=== PATIENT | female | born 1970 | race Caucasian/White ===

== ENCOUNTER 2017-02-01 15:14 | Emergency (ER) | payer OTHER ==
[2017-02-01] MEDS ORDERED: DUONEB 0.5-3 MG/3 ml Neb IH ONE ×2 (16:16→16:48)
--- NOTE | 2017-02-01 16:23 | ERPHSYRPT ---
- History of Present Illness Time Seen by Provider: 02/01/17 16:17 Source: patient Exam Limitations: no limitations Patient Subjective Stated Complaint: Pt states she has had a cough and been sob and wheezing for the last [address] Ortez called in a z-pack and harvinder worthy that she started yesterday but is not getting any better. States her ribs hurt from coughing so much. Triage Nursing Assessment: Pt alert and oriented x3. skin pink warm and dry. afebrile. expiratory wheezes noted ant/post. no sob noted Physician History: Is a 46-year-old white female with history of CVA, high blood pressure, asthma, pulmonary embolism, GERD, ulcers, anxiety, depression She arrives with complaint of cough for 3 days she states she has coughed she is having pain in her right lateral ribs with coughing symptoms for re-days she denies any fevers states she cannot cough anything up she does feel short of breath. Past medical history includes CVA, high blood pressure, asthma, pulmonary embolism, GERD, ulcers, anxiety, depression, ovarian cyst Past surgical history includes cholecystectomy, , tubal ligation, ovary removed Social history is positive for tobacco use Patient is on Laurens 10/ 25 mL of filled this prescription on January 04, 2017 for 120 tablets she is also on Lyrica 75 mg she filled this for of 90 tablets on January 04, 2017 Patient states she received Tessalon pearls and Zithromax from her family doctor several days ago. Timing/Duration: day(s) (3 days) Severity of Dyspnea-Max: mild Severity of Dyspnea-Current: mild Modifying Factors: Improves With: nothing Associated Symptoms: cough, chest pain/discomfort (pain with breathing right lateral rib), wheezing, No edema, No fever, No insomnia, No loss of appetite, No lightheadedness, No weakness, No ankle swelling, No chills, No hemoptysis, No calf pain, No dizziness, No heaviness, No heart racing, No lightheadedness, No leg swelling, No muscle spasms feet, No muscle spasms hands, No painful breathing, No productive cough, No sweating, No tightness, No tingling face, No tingling hands Allergies/Adverse Reactions: Penicillins Allergy (Verified 02/01/17 15:30) tramadol HCl [From [facility]] Allergy (Verified 02/01/17 15:30) Home Medications: Esomeprazole Magnesium [Nexium] 20 mg PO DAILY 01/19/16 [History] Hydrocodone Bit/Acetaminophen [Laurens 10-325 Tablet] 1 tab PO Q4-6HPRN PRN [History] Lisinopril 20 mg PO DAILY 01/19/16 [History] Sertraline HCl 100 mg [Zoloft 100 MG] 200 mg PO DAILY 01/19/16 [History] Pregabalin 50 mg [Lyrica 50MG] 50 mg PO TID 04/19/16 [History] Brexpiprazole [Rexulti] 2 mg PO DAILY 06/12/16 [History] Hydroxyzine HCl 25 mg [Atarax 25 mg] 25 mg PO TIDPRN PRN 06/12/16 [History ] Trazodone HCl [Oleptro ER] 1 tab PO HS 06/12/16 [History] Furosemide 20 mg [Lasix 20 mg] 20 mg PO DAILY 08/24/16 [History] Ipratropium/Albuterol Sulfate [Combivent Inhaler] 1 puff IH QID 08/24/16 [ History] Naproxen Sodium [Naproxen Sodium ER] 500 mg PO DAILY 08/24/16 [History] Potassium Chloride 10 Meq Tab* [Klor Con 10 MEQ] 10 meq PO DAILY 08/24/16 [ History] Azithromycin [Zithromax Tri-Taran 500 mg] 500 mg PO DAILY 02/01/17 [History] Benzonatate [Tessalon Perle] 100 mg PO TID 02/01/17 [History] Hx Tetanus, Diphtheria Vaccination/Date Given: Yes (2013) Hx Influenza Vaccination/Date Given: Yes Hx Pneumococcal Vaccination/Date Given: No Immunizations Up to Date: Yes - Review of Systems Constitutional: No Fever, No Chills Eyes: No Symptoms Ears, Nose, & Throat: No Symptoms, No Ear Pain, No Ear Discharge, No Hearing Changes, No Tinnitus, No Nose Pain, No Nose Congestion, No Nose Discharge, No Sinus Drainage, No Epistaxis, No Mouth Pain, No Mouth Swelling, No Loose Teeth, No Throat Pain, No Throat Swelling, No Hoarse, No Painful Swallowing, No Snoring , No Stridor Respiratory: Cough, Dyspnea, Wheezing, No Cyanosis, No Dyspnea on Exertion (LEE) , No Stridor Cardiac: No Chest Pain, No Edema, No Syncope Abdominal/Gastrointestinal: No Abdominal Pain, No Nausea, No Vomiting, No Diarrhea Genitourinary Symptoms: No Dysuria Musculoskeletal: No Back Pain, No Neck Pain Skin: No Rash Neurological: No Dizziness, No Focal Weakness, No Sensory Changes Psychological: No Symptoms Endocrine: No Symptoms All Other Systems: Reviewed and Negative - Past Medical History Pertinent Past Medical History: Yes Neurological History: Migraines ENT History: No Pertinent History Cardiac History: Hypertension, Other Respiratory History: Asthma, COPD Endocrine Medical History: Diabetes Type II Musculoskeletal History: No Pertinent History GI Medical History: GERD, Ulcer History: No Pertinent History Psycho-Social History: Anxiety, Depression Female Reproductive Disorders: Other Other Medical History: heart cath, Pt notes she had a pinched nerve. - Past Surgical History Past Surgical History: Yes Neuro Surgical History: No Pertinent History Cardiac: Cardiac Catheterization Respiratory: No Pertinent History Gastrointestinal: Cholecystectomy Genitourinary: No Pertinent History Musculoskeletal: Orthopedic Surgery Female Surgical History: Section, Tubal Ligation Other Surgical History: OVARY REMOVED, 2 , back - Social History Smoking Status: Current every day smoker How long have you smoked: 40 YEARS Exposure to second hand smoke: Yes Drug Use: none Patient Lives Alone: No - Female History Hx Last Menstrual Period: 01/16/2017 Hx Now: No - Nursing Vital Signs Nursing Vital Signs: Initial Vital Signs Temperature 98.1 F Temperature Source Oral Pulse Rate 100 Respiratory Rate 18 Blood Pressure [] 109/66 Pain Intensity 8 - Physical Exam General Appearance: no apparent distress Eye Exam: PERRL/EOMI Ears, Nose, Throat Exam: hearing grossly normal, normal ENT inspection, normal pharynx, No abnormal TM (R), No abnormal TM (L) Neck Exam: normal inspection, non-tender, supple, full range of motion Respiratory Exam: diminished breath sounds, wheezing (few scattered wheezes) Cardiovascular/Chest Exam: other (hWill overlying pointeart mild tacchycardia, no murmers) Abdominal/Gastrointestinal Exam: soft, No tenderness, No distention, No mass Extremity Exam: non-tender, normal range of motion, normal inspection, no calf tenderness, no pedal edema Peripheral Pulses Exam: dorsalis-pedis (R): 2+, dorsalis-pedis (L): 2+ Neurologic Exam: alert, oriented x 3, cooperative, 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, sensation nml, No motor deficits Skin Exam: normal color, warm, No dry SpO2 Interpretation: normal (99%) SpO2: 99 Oxygen Delivery: Room Air - Course Nursing assessment & vital signs reviewed: Yes EKG Interpreted by Me: RATE (114 bpm), Sinus Tach, NORMAL AXIS, Other (EKG, sinus tachycardia 1 14 bpm, normal axis, no acute ST or T wave changes are noted ) - Radiology Exams Chest X-ray Interpretation: Interpreted by me, Other (no acute disease processes noted ) Ordered Tests: Active Orders 24 hr Category Date Time Status Manager Financial Systems STAT Care 02/01/17 16:16 Active EKG-ER Only STAT Care 02/01/17 16:16 Active Pulse Oximetry (ED) STAT Care 02/01/17 16:16 Active CHEST 1 VIEW (PORTABLE) Stat Exams 02/01/17 16:16 Taken CBC W DIFF Stat Lab 02/01/17 16:30 Completed CMP Stat Lab 02/01/17 16:30 Completed D-DIMER QUANTITATION Stat Lab 02/01/17 16:30 Completed TROPONIN Stat Lab 02/01/17 16:30 Completed VENOUS BLOOD GAS Urgent Lab 02/01/17 16:16 Completed Respiratory Nebulizer STAT RT 02/01/17 16:17 Active Medication Summary Discontinued Medications Generic Name Dose Route Start Last Admin Trade Name Freq PRN Reason Stop Dose Admin Albuterol/Ipratropium 3 ml 02/01/17 16:16 02/01/17 16:35 Duoneb 0.5-3 Mg/3 Ml Neb IH 02/01/17 16:17 3 ml STAT ONE Administration Albuterol/Ipratropium Confirm 02/01/17 16:48 Duoneb 0.5-3 Mg/3 Ml Neb Administered 02/01/17 16:49 Dose 3 ml IH .STK-MED ONE Sodium Chloride 1,000 mls @ 999 mls/hr 02/01/17 17:08 02/01/17 17:37 Sodium Chloride 0.9% 1000 Ml IV 02/01/17 18:08 999 mls/hr .Q1H1M STA Administration Sodium Chloride 1,000 mls @ 999 mls/hr 02/01/17 17:17 02/01/17 19:15 Sodium Chloride 0.9% 1000 Ml IV 02/01/17 18:17 999 mls/hr .Q1H1M STA Administration Sodium Chloride Confirm 02/01/17 17:32 Sodium Chloride 0.9% 1000 Ml Administered 02/01/17 17:33 Dose 2,000 mls @ ud .ROUTE .STK-MED ONE Lab/Rad Data: Laboratory Result Diagrams 02/01/17 16:30 02/01/17 16:30 Laboratory Results 02/01/17 02/01/17 02/01/17 Range/Units 16:30 16:30 16:30 WBC (4.0-10.5) K/mm3 RBC (4.1-5.4) M/mm3 Hgb (12.0-16.0) gm/dl Hct (35-47) % MCV (78-100) fl MCH (26-32) pg MCHC (32-36) g/dl RDW (11.5-14.0) % Plt Count (150-450) K/mm3 MPV (6-9.5) fl Gran % (36.0-66.0) % Lymphocytes % (24.0-44.0) % Monocytes % (0.0-12.0) % Eosinophils % (0.00-5.0) % Basophils % (0.0-0.4) % Basophils # (0-0.4) D-Dimer 0.432 (0.00-0.49) mg/L VBG pH (7.32-7.42) VBG pCO2 at Pat Temp (42-55) mm/Hg VBG pO2 at Pat Temp (25-40) mm/Hg VBG HCO3 (22-28) meq/L VBG O2 Sat (Sarah) (95-100) VBG Base Excess (-2.0-2.0) VBG Hemoglobin VBG Carboxyhemoglobin (0.0-6.9) % T HGB POC Potassium (3.5-5.1) Sodium 142 (136-145) mEq/L Potassium 3.8 (3.5-5.1) mEq/L Chloride 109 H (98-107) mEq/L Carbon Dioxide 21.5 (21-32) mEq/L Anion Gap 15.5 H (5-15) MEQ/L BUN 14 (9-20) mg/dL Creatinine 1.05 (0.55-1.30) mg/dl Estimated GFR 60 ML/MIN Glucose 147 H (70-110) MG/DL Calcium 8.5 (8.5-10.1) mg/dL Total Bilirubin 0.1 L (0.2-1.0) mg/dL AST 13 L (15-37) U/L ALT 12 (12-78) U/L Alkaline Phosphatase 72 (46-116) U/L Troponin I < 0.017 (0.000-0.056) ng/ml Serum Total Protein 6.3 L (6.4-8.2) gm/dL Albumin 3.1 L (3.4-5.0) g/dL Influenza Type A Ag NEGATIVE (NEGATIVE) Influenza Type B Ag NEGATIVE (NEGATIVE) RSV (PCR) NEGATIVE (Negative) 02/01/17 02/01/17 Range/Units 16:30 16:16 WBC 7.9 (4.0-10.5) K/mm3 RBC 4.80 (4.1-5.4) M/mm3 Hgb 14.7 (12.0-16.0) gm/dl Hct 42.7 (35-47) % MCV 89.0 (78-100) fl MCH 30.6 (26-32) pg MCHC 34.4 (32-36) g/dl RDW 13.7 (11.5-14.0) % Plt Count 290 (150-450) K/mm3 MPV 9.1 (6-9.5) fl Gran % 58.2 (36.0-66.0) % Lymphocytes % 30.9 (24.0-44.0) % Monocytes % 8.7 (0.0-12.0) % Eosinophils % 1.8 (0.00-5.0) % Basophils % 0.4 (0.0-0.4) % Basophils # 0.03 (0-0.4) D-Dimer (0.00-0.49) mg/L VBG pH 7.34 (7.32-7.42) VBG pCO2 at Pat Temp 40 L (42-55) mm/Hg VBG pO2 at Pat Temp 32 (25-40) mm/Hg VBG HCO3 21.6 L (22-28) meq/L VBG O2 Sat (Sarah) 67.4 L (95-100) VBG Base Excess -3.9 L (-2.0-2.0) VBG Hemoglobin 15.1 VBG Carboxyhemoglobin 4.1 (0.0-6.9) % T HGB POC Potassium 3.9 (3.5-5.1) Sodium (136-145) mEq/L Potassium (3.5-5.1) mEq/L Chloride (98-107) mEq/L Carbon Dioxide (21-32) mEq/L Anion Gap (5-15) MEQ/L BUN (9-20) mg/dL Creatinine (0.55-1.30) mg/dl Estimated GFR ML/MIN Glucose (70-110) MG/DL Calcium (8.5-10.1) mg/dL Total Bilirubin (0.2-1.0) mg/dL AST (15-37) U/L ALT (12-78) U/L Alkaline Phosphatase (46-116) U/L Troponin I (0.000-0.056) ng/ml Serum Total Protein (6.4-8.2) gm/dL Albumin (3.4-5.0) g/dL Influenza Type A Ag (NEGATIVE) Influenza Type B Ag (NEGATIVE) RSV (PCR) (Negative) - Progress Progress: improved Air Movement: fair Progress Note: 02/01/17 19:26 Patient is feeling better after IV fluids and DuoNeb treatment. She wants to go home EKG no acute changes sinus tachycardia 1 14 bpm venous gas is pH 7.34 PCO2 40 d-dimer within normal limits 0.432 influenza negative chemistry essentially normal. Will send patient home diagnosis COPD with exacerbation, bronchitis - Departure Time of Disposition: 19:28 Departure Disposition: Home Clinical Impression: COPD with exacerbation, Bronchitis Condition: Fair Critical Care Time: No Instructions: Chronic Obstructive Pulmonary Disease Additional Instructions: Return home. Use your inhalers as directed. Zithromax Z-TARAN as directed. Tapering dose of prednisone as directed. Follow-up with your family doctor. Return for acute distress or for severe symptoms stop smoking Prescriptions: Azithromycin 250 mg [Zithromax 250 MG TABLET] 0 mg PO ZPACK #6 tablet
[2017-02-01 16:40] LABS: BASOPHIL % 0.4 % (0.0-0.4); Eosinophil % 1.8 % (0.00-5.0); Granulocytes % 58.2 % (36.0-66.0); Lymphocytes % 30.9 % (24.0-44.0); Mean Corpuscular Hemoglobin 30.6 pg (26-32); Mean Platelet Volume 9.1 fl (6-9.5); Monocytes % 8.7 % (0.0-12.0); Platelet Count 290 K/mm3 (150-450); Red Cell Distribution Width 13.7 % (11.5-14.0); White Blood Count 7.9 K/mm3 (4.0-10.5)
[2017-02-01 16:44] LABS: VBG BASE EXCESS -3.9 (-2.0-2.0); VBG CARBOXYHEMOGLOBIN 4.1 % T HGB (0.0-6.9); VBG HCO3- 21.6 meq/L (22-28); VBG HEMOGLOBIN 15.1; VBG O2 SATURATION 67.4 (95-100); VBG POTASSIUM 3.9 (3.5-5.1); VBG pH 7.34 (7.32-7.42)
[2017-02-01] MEDS ORDERED: Sodium Chloride 0.9% 1000 ML 1,000 ML IV STA ×2 (17:08→17:17)
[2017-02-01 17:12] LABS: ALBUMIN 3.1 g/dL (3.4-5.0); ALKALINE PHOSPHATASE 72 U/L (46-116); ANION GAP 15.5 MEQ/L (5-15); BILIRUBIN,TOTAL 0.1 mg/dL (0.2-1.0); BLOOD UREA NITROGEN 14 mg/dL (9-20); CHLORIDE 109 mEq/L (98-107); Carbon Dioxide 21.5 mEq/L (21-32); Glucose 147 MG/DL (70-110); Potassium 3.8 mEq/L (3.5-5.1); SGOT/AST 13 U/L (15-37); SGPT/ALT 12 U/L (12-78); SODIUM 142 mEq/L (136-145); Total Protein 6.3 gm/dL (6.4-8.2)
[2017-02-01 17:19] LABS: TROPONIN < 0.017 ng/ml (0.000-0.056)
[2017-02-01] MEDS ORDERED: Sodium Chloride 0.9% 1000 ML 2,000 ML ONE (17:32)
[2017-02-01 19:41] VITALS: BP 112/78; PULSE 98; O2SAT 98
--- NOTE | 2017-02-01 22:22 | XRAY ---
Indication: Short of breath. COPD and asthma. Comparison: November 26, 2016. Portable chest remains clear. Heart and mediastinal structures within normal limits. Bony thorax intact. Impression: Stable nonacute chest.
== END 2017-02-01 19:39 | disposition home or self-care (01) ==
LOC: ED 15:14
DX: J44.1 Chronic obstructive pulmonary disease with (acute) exacerbation (principal); J40 Bronchitis, not specified as acute or chronic; R05 Cough; R06.00 Dyspnea, unspecified; R06.2 Wheezing; J45.909 Unspecified asthma, uncomplicated
CPT/HCPCS: 36000; 36415; 71010; 80053; 82805; 84484; 85025; 85379; 87631; 93005; 93041; 94640; 96360; 96361; 99283

== ENCOUNTER 2017-02-26 17:06 | Emergency (ER) | payer OTHER ==
--- NOTE | 2017-02-26 17:27 | ERPHSYRPT ---
- History of Present Illness Time Seen by Provider: 02/26/17 17:15 Source: patient Exam Limitations: no limitations Patient Subjective Stated Complaint: back pain since saturday Triage Nursing Assessment: did PT on saturday and 'they pushed on my lt back' and now my back hurts. pain worse when moving lt leg but has no radiation of pain-- pain stays on lt back. denies injury. Timing/Duration: day(s) (2) Method of Injury: other (PT manipulation left back with worsening back tension and pain while trying to lift left leg into car.) Quality: sharp Back Pain Location: lumbar spine Severity of Pain-Max: moderate Severity of Pain-Current: moderate Modifying Factors: Improves With: movement Associated Symptoms: denies symptoms Previous symptoms: same symptoms as today, other (she is perfoming PT x 6 weeks and anticipates neurostimulator implantation also.) Allergies/Adverse Reactions: Penicillins Allergy (Verified 02/26/17 17:17) tramadol HCl [From [facility]] Allergy (Verified 02/26/17 17:17) Home Medications: Esomeprazole Magnesium [Nexium] 20 mg PO DAILY 01/19/16 [History] Lisinopril 20 mg PO DAILY 01/19/16 [History] Sertraline HCl 100 mg [Zoloft 100 MG] 200 mg PO DAILY 01/19/16 [History] Pregabalin 50 mg [Lyrica 50MG] 50 mg PO TID 04/19/16 [History] Brexpiprazole [Rexulti] 2 mg PO DAILY 06/12/16 [History] Trazodone HCl [Oleptro ER] 1 tab PO HS 06/12/16 [History] Ipratropium/Albuterol Sulfate [Combivent Inhaler] 1 puff IH QID 08/24/16 [ History] Potassium Chloride 10 Meq Tab* [Klor Con 10 MEQ] 10 meq PO DAILY 08/24/16 [ History] Benzonatate [Tessalon Perle] 100 mg PO TID 02/01/17 [History] Albuterol/Ipratropium 3ml Neb* [DUONEB 0.5-3 MG/3 ml Neb] 3 ml IH QID [History] Hx Tetanus, Diphtheria Vaccination/Date Given: Yes Hx Influenza Vaccination/Date Given: No Hx Pneumococcal Vaccination/Date Given: No Immunizations Up to Date: Yes - Review of Systems Constitutional: No Symptoms Eyes: No Symptoms Ears, Nose, & Throat: No Symptoms Respiratory: No Symptoms Cardiac: No Symptoms Abdominal/Gastrointestinal: No Symptoms Musculoskeletal: Back Pain Skin: No Symptoms Neurological: No Symptoms Psychological: No Symptoms Endocrine: No Symptoms Hematologic/Lymphatic: No Symptoms - Past Medical History Pertinent Past Medical History: Yes Neurological History: Migraines ENT History: No Pertinent History Cardiac History: Hypertension, Other Respiratory History: Asthma, COPD Endocrine Medical History: Diabetes Type II Musculoskeletal History: No Pertinent History GI Medical History: GERD, Ulcer History: No Pertinent History Psycho-Social History: Anxiety, Depression Female Reproductive Disorders: Other Other Medical History: heart cath, Pt notes she had a pinched nerve. - Past Surgical History Past Surgical History: Yes Neuro Surgical History: No Pertinent History Cardiac: Cardiac Catheterization Respiratory: No Pertinent History Gastrointestinal: Cholecystectomy Genitourinary: No Pertinent History Musculoskeletal: Orthopedic Surgery Female Surgical History: Section, Tubal Ligation Other Surgical History: OVARY REMOVED, 2 , back - Social History Smoking Status: Current every day smoker How long have you smoked: 40 YEARS Exposure to second hand smoke: Yes Drug Use: none Patient Lives Alone: No - Female History Hx Now: No - Nursing Vital Signs Temperature: 98.1 F Temperature Source: Oral Pulse Rate: 129 Respiratory Rate: 18 Pain Intensity: 10 - Physical Exam General Appearance: moderate distress Eye Exam: eyes nml inspection Ears, Nose, Throat Exam: normal ENT inspection, pharynx normal Neck Exam: normal inspection, non-tender, supple, full range of motion Respiratory Exam: normal breath sounds, lungs clear Cardiovascular Exam: regular rate/rhythm, normal heart sounds, normal peripheral pulses Gastrointestinal Exam: soft, normal bowel sounds Back Exam: normal inspection, decreased range of motion, muscle spasm Extremity Exam: normal inspection, normal range of motion, pelvis stable Neurologic Exam: alert, oriented x 3, nml cerebellar function Skin Exam: normal color, warm, dry SpO2 Interpretation: normal SpO2: 98 Oxygen Delivery: Room Air - Course Nursing assessment & vital signs reviewed: Yes - Radiology Exams L-Spine X-ray Interpretation: Interpreted by me, Negative, No Fracture (HARDWARE INTACT) Ordered Tests: Active Orders 24 hr Category Date Time Status LUMBAR COMPLETE (MIN 4 VIEWS) Stat Exams 02/26/17 17:29 Taken Medication Summary Discontinued Medications Generic Name Dose Route Start Last Admin Trade Name Danny PRN Reason Stop Dose Admin Ketorolac Tromethamine 60 mg 02/26/17 17:34 02/26/17 17:41 Toradol 30 Mg Injection IM 02/26/17 17:35 60 mg STAT ONE Administration Ketorolac Tromethamine Confirm 02/26/17 17:40 Toradol 30 Mg Injection Administered 02/26/17 17:41 Dose 60 mg .ROUTE .STK-MED ONE Orphenadrine Citrate 60 mg 02/26/17 17:34 02/26/17 17:41 Norflex 60 Mg/2 Ml IM 02/26/17 17:35 60 mg STAT ONE Administration Orphenadrine Citrate Confirm 02/26/17 17:40 Norflex 60 Mg/2 Ml Administered 02/26/17 17:41 Dose 60 mg .ROUTE .STK-MED ONE - Progress Progress: improved Counseled pt/family regarding: need for follow-up (PT and PCP 1 week), rad results - Departure Time of Disposition: 18:03 Departure Disposition: Home Clinical Impression: Lumbar back pain Qualifiers: Chronicity: chronic Back pain laterality: left Sciatica presence: without sciatica Qualified Code(s): M54.5 - Low back pain; G89.29 - Other chronic pain Condition: Stable Critical Care Time: No Prescriptions: Cyclobenzaprine HCl 10 mg [Cyclobenzaprine 10 MG] 10 mg PO TID PRN #12 tab Naproxen 500 mg PO BID #20 tablet
[2017-02-26] MEDS ORDERED: Norflex 60 MG/2 ML IM ONE (17:34)
[2017-02-26] MEDS ORDERED: TORAdol 30 mg Injection IM ONE (17:34)
[2017-02-26] MEDS ORDERED: Norflex 60 MG/2 ML ONE (17:40)
[2017-02-26] MEDS ORDERED: TORAdol 30 mg Injection ONE (17:40)
[2017-02-26 18:15] VITALS: BP 144/70; PULSE 71; O2SAT 100
--- NOTE | 2017-02-27 08:33 | XRAY ---
Indication: Low back pain and left leg weakness. Comparison: August 01, 2016. 5 views of the lumbar spine again demonstrates 5 lumbar vertebral segments in normal alignment with previous posterior L5-S1 fusion and minimal multilevel anterior endplate spurring. Vertebral body heights and disc spaces maintained. No acute fracture, subluxation, or pars interarticularis defect. Again cholecystectomy clips. 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
== END 2017-02-26 18:14 | disposition home or self-care (01) ==
LOC: ED 17:06
DX: M54.5 Low back pain (principal); G89.29 Other chronic pain; I10 Essential (primary) hypertension; E11.9 Type 2 diabetes mellitus without complications
CPT/HCPCS: 72110; 96372; 99284; J1885; J2360

== ENCOUNTER 2017-12-07 09:17 | Emergency (ER) | payer OTHER ==
[2017-12-07] MEDS ORDERED: Lactated Ringers 1,000 ML IV ONE ×2 (09:32→09:46)
--- NOTE | 2017-12-07 09:36 | ERPHSYRPT ---
- History of Present Illness Time Seen by Provider: 12/07/17 09:28 Source: patient, family Physician History: CC: fast heart rate Hx: 47 y/o patient of Dr Rios with hx of HTN on lisinopril. She went to donate plasma this AM and her heart rate was too fast so she came to ER. She has had diarrhea since last night. No vomiting. No fever. No chest pain or abd pain. No hx of heart problems. Symptoms mild. Timing/Duration: today, yesterday Allergies/Adverse Reactions: Penicillins Allergy (Verified 12/07/17 10:37) tramadol HCl [From Ultram] Allergy (Verified 12/07/17 10:37) Home Medications: Esomeprazole Magnesium [Nexium] 20 mg PO DAILY 01/19/16 [History] Lisinopril 20 mg PO DAILY 01/19/16 [History] Sertraline HCl 100 mg [Zoloft 100 MG] 200 mg PO DAILY 01/19/16 [History] Pregabalin 50 mg [Lyrica 50MG] 50 mg PO TID 04/19/16 [History] Brexpiprazole [Rexulti] 2 mg PO DAILY 06/12/16 [History] Trazodone HCl [Oleptro ER] 1 tab PO HS 06/12/16 [History] Ipratropium/Albuterol Sulfate [Combivent Inhaler] 1 puff IH QID 08/24/16 [ History] Potassium Chloride 10 Meq Tab* [Klor Con 10 MEQ] 10 meq PO DAILY 08/24/16 [ History] Benzonatate [Tessalon Perle] 100 mg PO TID 02/01/17 [History] Albuterol/Ipratropium 3ml Neb* [DUONEB 0.5-3 MG/3 ml Neb] 3 ml IH QID [History] Hx Tetanus, Diphtheria Vaccination/Date Given: Yes Hx Influenza Vaccination/Date Given: No Hx Pneumococcal Vaccination/Date Given: No - Review of Systems Constitutional: Malaise, No Fever, No Chills Eyes: No Symptoms Ears, Nose, & Throat: No Symptoms Respiratory: No Cough, No Dyspnea Cardiac: Palpitations, No Chest Pain, No Syncope Abdominal/Gastrointestinal: Diarrhea, No Abdominal Pain, No Nausea, No Vomiting Genitourinary Symptoms: No Dysuria Musculoskeletal: No Back Pain Skin: No Rash Neurological: No Focal Weakness, No Headache, No Parasthesia All Other Systems: Reviewed and Negative - Past Medical History Pertinent Past Medical History: Yes Neurological History: Migraines ENT History: No Pertinent History Cardiac History: Hypertension, Other Respiratory History: Asthma, COPD Endocrine Medical History: Diabetes Type II Musculoskeletal History: No Pertinent History GI Medical History: GERD, Ulcer History: No Pertinent History Psycho-Social History: Anxiety, Depression Female Reproductive Disorders: Other Other Medical History: heart cath, Pt notes she had a pinched nerve. - Past Surgical History Past Surgical History: Yes Neuro Surgical History: No Pertinent History Cardiac: Cardiac Catheterization Respiratory: No Pertinent History Gastrointestinal: Cholecystectomy Genitourinary: No Pertinent History Musculoskeletal: Orthopedic Surgery Female Surgical History: Section, Tubal Ligation Other Surgical History: OVARY REMOVED, 2 , back - Social History Smoking Status: Current every day smoker How long have you smoked: 40 YEARS Exposure to second hand smoke: Yes Drug Use: none Patient Lives Alone: No - Nursing Vital Signs Nursing Vital Signs: Initial Vital Signs Pulse Rate 110 H 12/07/17 09:39 Respiratory Rate 20 12/07/17 09:39 Blood Pressure 125/59 12/07/17 09:39 O2 Sat by Pulse Oximetry 100 12/07/17 09:39 Pain Scale Pain Intensity 0 - Physical Exam General Appearance: alert, obese Eye Exam: PERRL/EOMI Ears, Nose, Throat Exam: dry mucous membranes Neck Exam: normal inspection, non-tender, supple Respiratory Exam: normal breath sounds Cardiovascular Exam: regular rate/rhythm, tachycardia (mild) Gastrointestinal/Abdomen Exam: soft, No tenderness, No distention, No mass, No guarding Back Exam: normal inspection Extremity Exam: normal inspection, normal range of motion Neurologic Exam: alert, oriented x 3, cooperative, sensation nml, No motor deficits Skin Exam: warm, dry, No rash - Course Nursing assessment & vital signs reviewed: Yes EKG Interpreted by Me: RATE (108), Sinus Tach, NORMAL AXIS, NORMAL INTERVALS ( QTc 427), NORMAL QRS, NORMAL ST-T - Radiology Exams cxr X-ray Interpretation: Interpreted by me, Negative (normal heart size) Ordered Tests: Active Orders 24 hr Category Date Time Status Clean Catch Urine Specimen STAT Care 12/07/17 09:33 Active EKG-ER Only STAT Care 12/07/17 09:33 Active IV Insertion STAT Care 12/07/17 09:33 Active Nursing [Miscellaneous Nursing Order] ROUTINE Care 12/07/17 10:37 Active CHEST 2 VIEWS (PA AND LAT) Stat Exams 12/07/17 09:33 Taken CBC W DIFF Stat Lab 12/07/17 09:38 Completed CMP Stat Lab 12/07/17 09:38 Completed CULTURE,URINE Stat Lab 12/07/17 09:33 Received Lactic Acid Stat Lab 12/07/17 09:33 Completed MAGNESIUM Stat Lab 12/07/17 09:38 Completed UA W/ MICROSCOPIC Stat Lab 12/07/17 09:33 Completed Medication Summary Discontinued Medications Generic Name Dose Route Start Last Admin Trade Name Danny PRN Reason Stop Dose Admin Lactated Ringer's 1,000 mls @ 999 mls/hr 12/07/17 09:32 12/07/17 09:50 Lactated Ringers IV 12/07/17 10:32 999 mls/hr .Q1H1M ONE Administration Lactated Ringer's Confirm 12/07/17 09:46 Lactated Ringers Administered 12/07/17 09:47 Dose 1,000 mls @ ud IV .STK-MED ONE Lab/Rad Data: Laboratory Result Diagrams 12/07/17 09:38 12/07/17 09:38 Laboratory Results 12/07/17 12/07/17 12/07/17 Range/Units 09:38 09:38 09:33 WBC 7.0 (4.0-10.5) K/mm3 RBC 4.63 (4.1-5.4) M/mm3 Hgb 13.5 (12.0-16.0) gm/dl Hct 41.3 (35-47) % MCV 89.2 (78-100) fl MCH 29.2 (26-32) pg MCHC 32.7 (32-36) g/dl RDW 13.0 (11.5-14.0) % Plt Count 262 (150-450) K/mm3 MPV 9.2 (6-9.5) fl Gran % 67.7 H (36.0-66.0) % Lymphocytes % 24.3 (24.0-44.0) % Monocytes % 6.3 (0.0-12.0) % Eosinophils % 1.3 (0.00-5.0) % Basophils % 0.4 (0.0-0.4) % Basophils # 0.03 (0-0.4) Sodium 138 (136-145) mEq/L Potassium 3.9 (3.5-5.1) mEq/L Chloride 104 (98-107) mEq/L Carbon Dioxide 24.8 (21-32) mEq/L Anion Gap 13.1 (5-15) MEQ/L BUN 12 (9-20) mg/dL Creatinine 0.95 (0.55-1.30) mg/dl Estimated GFR > 60 ML/MIN Glucose 138 H (70-110) MG/DL Lactic Acid 1.6 (0.4-2.0) Calcium 9.0 (8.5-10.1) mg/dL Magnesium 1.8 (1.8-2.4) mg/dL Total Bilirubin 0.20 (0.2-1.0) mg/dL AST 10 L (15-37) U/L ALT 13 (12-78) U/L Alkaline Phosphatase 134 H (46-116) U/L Serum Total Protein 6.9 (6.4-8.2) gm/dL Albumin 3.3 L (3.4-5.0) g/dL Ur Collection Type Urine Color (YELLOW) Urine Appearance (CLEAR) Urine pH (5-6) Ur Specific [place] (1.005-1.025) Urine Protein (Negative) Urine Ketones (NEGATIVE) Urine Blood (0-5) Reji/ul Urine Nitrite (NEGATIVE) Urine Bilirubin (NEGATIVE) Urine Urobilinogen (0-1) mg/dL Ur Leukocyte Esterase (NEGATIVE) Urine Microscopic RBC (0-2) /HPF Urine Microscopic WBC (0-5) /HPF Ur Epithelial Cells (FEW) /HPF Urine Bacteria (NEGATIVE) /HPF Urine Mucus (NEGATIVE) /HPF Urine Culture Reflexed (NO) Urine Glucose (NEGATIVE) mg/dL Specimen Received 12/07/17 Range/Units 09:33 WBC (4.0-10.5) K/mm3 RBC (4.1-5.4) M/mm3 Hgb (12.0-16.0) gm/dl Hct (35-47) % MCV (78-100) fl MCH (26-32) pg MCHC (32-36) g/dl RDW (11.5-14.0) % Plt Count (150-450) K/mm3 MPV (6-9.5) fl Gran % (36.0-66.0) % Lymphocytes % (24.0-44.0) % Monocytes % (0.0-12.0) % Eosinophils % (0.00-5.0) % Basophils % (0.0-0.4) % Basophils # (0-0.4) Sodium (136-145) mEq/L Potassium (3.5-5.1) mEq/L Chloride (98-107) mEq/L Carbon Dioxide (21-32) mEq/L Anion Gap (5-15) MEQ/L BUN (9-20) mg/dL Creatinine (0.55-1.30) mg/dl Estimated GFR ML/MIN Glucose (70-110) MG/DL Lactic Acid (0.4-2.0) Calcium (8.5-10.1) mg/dL Magnesium (1.8-2.4) mg/dL Total Bilirubin (0.2-1.0) mg/dL AST (15-37) U/L ALT (12-78) U/L Alkaline Phosphatase (46-116) U/L Serum Total Protein (6.4-8.2) gm/dL Albumin (3.4-5.0) g/dL Ur Collection Type CLEAN CATCH Urine Color YELLOW (YELLOW) Urine Appearance CLEAR (CLEAR) Urine pH 5.0 (5-6) Ur Specific [place] 1.020 (1.005-1.025) Urine Protein NEGATIVE (Negative) Urine Ketones NEGATIVE (NEGATIVE) Urine Blood NEGATIVE (0-5) Reji/ul Urine Nitrite NEGATIVE (NEGATIVE) Urine Bilirubin NEGATIVE (NEGATIVE) Urine Urobilinogen NORMAL (0-1) mg/dL Ur Leukocyte Esterase TRACE (NEGATIVE) Urine Microscopic RBC 2-5 (0-2) /HPF Urine Microscopic WBC 5-10 (0-5) /HPF Ur Epithelial Cells MODERATE (FEW) /HPF Urine Bacteria MODERATE (NEGATIVE) /HPF Urine Mucus SLIGHT (NEGATIVE) /HPF Urine Culture Reflexed YES (NO) Urine Glucose NEGATIVE (NEGATIVE) mg/dL Specimen Received 1000 12-07-17 - Progress Progress Note: 12/07/17 11:04 She feels fine. Ambulated to bathroom without problems. A little orthostatic on vitals. Afebrile. She wants to go home. No urine symptoms so urine cx done but no abtx. Advised fluids and follow up with Dr Rios before donating blood again. Counseled pt/family regarding: lab results, diagnosis, need for follow-up, rad results - Departure Time of Disposition: 11:05 Departure Disposition: Home Clinical Impression: Tachycardia, Dehydration, Diarrhea Condition: Stable Critical Care Time: No Referrals: RINKU RIOS MD [Primary Care Provider] - Instructions: Tachycardia, Dehydration -- Adult, Diarrhea and Traveler's Diarrhea -- Adult Additional Instructions: Drink plenty of fluids. No driving today. Follow up with Dr Rios next week before donating blood again.
[2017-12-07 09:47] LABS: BASOPHIL % 0.4 % (0.0-0.4); Basophil (Absolute #) 0.03 (0-0.4); Eosinophil % 1.3 % (0.00-5.0); Eosinophil (Absolute #) 0.09 (0-0.5); Granulocyte Absolute (ANC) 4.73 (1.4-6.9); Granulocytes % 67.7 % (36.0-66.0); Hematocrit 41.3 % (35-47); Hemoglobin 13.5 gm/dl (12.0-16.0); Lymphocytes % 24.3 % (24.0-44.0); Mean Cell Volume 89.2 fl (78-100); Mean Corpuscular Hemoglobin 29.2 pg (26-32); Mean Corpuscular Hgb Concent. 32.7 g/dl (32-36); Mean Platelet Volume 9.2 fl (6-9.5); Monocyte (Absolute #) 0.44 (0.0-1.3); Monocytes % 6.3 % (0.0-12.0); Platelet Count 262 K/mm3 (150-450); Red Blood Count 4.63 M/mm3 (4.1-5.4)
[2017-12-07 10:11] LABS: ALBUMIN 3.3 g/dL (3.4-5.0); ALKALINE PHOSPHATASE 134 U/L (46-116); ANION GAP 13.1 MEQ/L (5-15); BLOOD UREA NITROGEN 12 mg/dL (9-20); CHLORIDE 104 mEq/L (98-107); Carbon Dioxide 24.8 mEq/L (21-32); Creatinine 1 0.95 mg/dl (0.55-1.30); EST GLOMERULAR FILTRATION RATE > 60 ML/MIN; Glucose 138 MG/DL (70-110); MAGNESIUM 1.8 mg/dL (1.8-2.4); Potassium 3.9 mEq/L (3.5-5.1); SGOT/AST 10 U/L (15-37); SGPT/ALT 13 U/L (12-78); SODIUM 138 mEq/L (136-145); Total Protein 6.9 gm/dL (6.4-8.2)
[2017-12-07 10:15] LABS: Appearance CLEAR (CLEAR)
[2017-12-07 10:16] LABS: Bilirubin NEGATIVE (NEGATIVE); Blood NEGATIVE Ery/ul (0-5); Glucose NEGATIVE (NEGATIVE); Ketones NEGATIVE (NEGATIVE); Leukocyte Esterase TRACE (NEGATIVE); Nitrite NEGATIVE (NEGATIVE); Protein,Urine Dip NEGATIVE (Negative); Urobilinogen NORMAL mg/dL (0-1)
[2017-12-07 10:35] LABS: Bacteria MODERATE /HPF (NEGATIVE); Epithelial Cells MODERATE /HPF (FEW); Mucus SLIGHT /HPF (NEGATIVE)
[2017-12-07 11:06] VITALS: BP 108/73; PULSE 104; O2SAT 100
--- NOTE | 2017-12-07 22:47 | XRAY ---
Indication: Tachycardia. Comparison: February 01, 2017. PA/lateral chest again demonstrates normal heart and lungs. Bony thorax intact. No new/acute findings.
== END 2017-12-07 11:14 | disposition home or self-care (01) ==
LOC: ED 09:17
DX: R00.0 Tachycardia, unspecified (principal); E86.0 Dehydration; R19.7 Diarrhea, unspecified; Z79.899 Other long term (current) drug therapy
CPT/HCPCS: 36000; 36415; 71046; 80053; 81000; 83605; 83735; 85025; 87086; 93005; 96360; 99284

== ENCOUNTER 2018-12-27 21:47 | Emergency (ER) | payer OTHER ==
[2018-12-27 22:30] VITALS: O2SAT 96
--- NOTE | 2018-12-27 23:00 | ERPHSYRPT ---
- History of Present Illness Time Seen by Provider: 12/27/18 22:59 Source: patient Exam Limitations: no limitations Patient Subjective Stated Complaint: pt c/o swelling in her lower legs for one week Triage Nursing Assessment: ble edema +2 non-pitting. pulses papable. non- weeping. Physician History: 48 y/o white female presents with one week h/o bilat lower ext swelling. no injury. no soa. no known renal dz. pt denies cp. pt has no c/o. pt was asleep due to pt taking her night time sleeping pill and noticed bilat ankle swelling. so he brought her in for evaluation Method of Injury: other (no complaints) Occurred: last week Quality: other (asymptomatic) Severity of Pain-Max: none Severity of Pain-Current: none Associated Symptoms: none Allergies/Adverse Reactions: Penicillins Allergy (Verified 12/07/17 10:37) tramadol HCl [From Ultram] Allergy (Verified 12/07/17 10:37) Home Medications: Esomeprazole Magnesium [Nexium] 20 mg PO DAILY 01/19/16 [History] Lisinopril 20 mg PO DAILY 01/19/16 [History] Sertraline HCl 100 mg [Zoloft 100 MG] 200 mg PO DAILY 01/19/16 [History] Pregabalin 50 mg [Lyrica 50MG] 50 mg PO TID 04/19/16 [History] Brexpiprazole [Rexulti] 2 mg PO DAILY 06/12/16 [History] Trazodone HCl [Oleptro ER] 1 tab PO HS 06/12/16 [History] Ipratropium/Albuterol Sulfate [Combivent Inhaler] 1 puff IH QID 08/24/16 [ History] Potassium Chloride 10 Meq Tab* [Klor Con 10 MEQ] 10 meq PO DAILY 08/24/16 [ History] Benzonatate [Tessalon Perle] 100 mg PO TID 02/01/17 [History] Albuterol/Ipratropium 3ml Neb* [DUONEB 0.5-3 MG/3 ml Neb] 3 ml IH QID [History] Hx Tetanus, Diphtheria Vaccination/Date Given: Yes Hx Influenza Vaccination/Date Given: No Hx Pneumococcal Vaccination/Date Given: No - Review of Systems Constitutional: No Symptoms Eyes: No Symptoms Ears, Nose, & Throat: No Symptoms Respiratory: No Symptoms Cardiac: No Symptoms Abdominal/Gastrointestinal: No Symptoms Genitourinary Symptoms: No Symptoms Musculoskeletal: Other (bilat ankle edema. ) Skin: No Symptoms Neurological: No Symptoms Psychological: No Symptoms Endocrine: No Symptoms Hematologic/Lymphatic: No Symptoms Immunological/Allergic: No Symptoms All Other Systems: Reviewed and Negative - Past Medical History Pertinent Past Medical History: Yes Neurological History: No Pertinent History ENT History: No Pertinent History Cardiac History: Coronary Artery Disease Respiratory History: Asthma, COPD Endocrine Medical History: Diabetes Type II Musculoskeletal History: No Pertinent History GI Medical History: GERD, Ulcer History: No Pertinent History Psycho-Social History: Anxiety, Depression Female Reproductive Disorders: Other Other Medical History: heart cath, Pt notes she had a pinched nerve. - Past Surgical History Past Surgical History: Yes Neuro Surgical History: No Pertinent History Cardiac: Cardiac Catheterization Respiratory: No Pertinent History Gastrointestinal: Cholecystectomy Genitourinary: No Pertinent History Musculoskeletal: Orthopedic Surgery Female Surgical History: Section, Tubal Ligation Other Surgical History: OVARY REMOVED, 2 , back - Social History Smoking Status: Current every day smoker How long have you smoked: 40 YEARS Exposure to second hand smoke: Yes Drug Use: none Patient Lives Alone: No - Female History Hx Last Menstrual Period: n/a Hx Now: No - Nursing Vital Signs Nursing Vital Signs: Initial Vital Signs Temperature 97.9 F 12/27/18 22:22 Pulse Rate 85 12/27/18 22:22 Respiratory Rate 18 12/27/18 22:22 Blood Pressure 122/48 12/27/18 22:22 O2 Sat by Pulse Oximetry 96 12/27/18 22:22 Pain Scale Pain Intensity 8 - Physical Exam General Appearance: no apparent distress, obese Eyes, Ears, Nose, Throat Exam: normal ENT inspection, moist mucous membranes Neck Exam: normal inspection, non-tender, supple, full range of motion Cardiovascular/Respiratory Exam: chest non-tender, regular rate/rhythm, heart sounds normal, No normal breath sounds Gastrointestinal/Abdominal Exam: non-tender, soft, No guarding, No tenderness Back Exam: normal inspection, normal range of motion, No CVA tenderness, No vertebral tenderness Hips Exam: bilateral: non-tender, normal inspection, normal range of motion, no evidence of injury Legs Exam: bilateral leg: non-tender, normal inspection, normal range of motion , no evidence of injury Knees Exam: bilateral knee: non-tender, normal inspection, normal range of motion, no evidence of injury Ankle Exam: bilateral ankle: non-tender, normal range of motion, no evidence of injury, swelling Foot Exam: bilateral foot: non-tender, normal inspection, normal range of motion , no evidence of injury Neuro/Tendon Exam: normal sensation, normal motor functions, normal tendon functions Mental Status Exam: oriented x 3, cooperative, other (sleepy but rousable. answers questions appropriately) Skin Exam: normal color, warm, dry SpO2 Interpretation: normal SpO2: 96 O2 Delivery: Room Air - Course Nursing assessment & vital signs reviewed: Yes Ordered Tests: Active Orders 24 hr Category Date Time Status CBC Stat Lab 12/27/18 23:28 Completed CMP Stat Lab 12/27/18 23:28 Completed D-DIMER QUANTITATION Stat Lab 12/27/18 23:28 Completed NT PRO BNP Stat Lab 12/27/18 23:28 Completed Lab/Rad Data: Laboratory Result Diagrams 12/27/18 23:28 12/27/18 23:28 Laboratory Results 12/27/18 12/27/18 12/27/18 Range/Units 23:28 23:28 23:28 WBC 7.4 (4.0-10.5) K/mm3 RBC 4.55 (4.1-5.4) M/mm3 Hgb 13.9 (12.0-16.0) gm/dl Hct 42.5 (35-47) % MCV 93.4 (78-100) fl MCH 30.5 (26-32) pg MCHC 32.7 (32-36) g/dl RDW 13.4 (11.5-14.0) % Plt Count 260 (150-450) K/mm3 MPV 9.2 (6-9.5) fl D-Dimer 231 (215-500) ng/mL Sodium 143 (137-145) mmol/L Potassium 4.6 (3.5-5.1) mmol/L Chloride 105 (98-107) mmol/L Carbon Dioxide 31 H (22-30) mmol/L Anion Gap 11.9 (5-15) MEQ/L BUN 18 H (7-17) mg/dL Creatinine 1.16 H (0.52-1.04) mg/dL Estimated GFR 52.8 ML/MIN Glucose 123 H (74-106) mg/dL Calcium 9.6 (8.4-10.2) mg/dL Total Bilirubin 0.50 (0.2-1.3) mg/dL AST 12 L (14-36) U/L ALT 16 (0-35) U/L Alkaline Phosphatase 91 (38-126) U/L NT-Pro-B Natriuret Pep 58.1 (0-450) pg/mL Serum Total Protein 6.5 (6.3-8.2) g/dL Albumin 3.6 (3.5-5.0) g/dL - Progress Progress: unchanged, re-examined Counseled pt/family regarding: lab results, diagnosis, need for follow-up - Departure Time of Disposition: 23:53 Departure Disposition: Home Clinical Impression: Bilateral edema of lower extremity Condition: Stable Critical Care Time: No Referrals: DONA DARLING NP [Primary Care Provider] - Additional Instructions: drink plenty of fluids. follow up with primary doctor for further management
[2018-12-27 23:31] LABS: Hematocrit 42.5 % (35-47); Hemoglobin 13.9 gm/dl (12.0-16.0); Mean Cell Volume 93.4 fl (78-100); Mean Corpuscular Hemoglobin 30.5 pg (26-32); Mean Corpuscular Hgb Concent. 32.7 g/dl (32-36); Mean Platelet Volume 9.2 fl (6-9.5); Platelet Count 260 K/mm3 (150-450); Red Blood Count 4.55 M/mm3 (4.1-5.4); Red Cell Distribution Width 13.4 % (11.5-14.0); White Blood Count 7.4 K/mm3 (4.0-10.5)
[2018-12-27 23:51] LABS: ALBUMIN 3.6 g/dL (3.5-5.0); ANION GAP 11.9 MEQ/L (5-15); BILIRUBIN,TOTAL 0.5 mg/dL (0.2-1.3); Calcium 9.6 mg/dL (8.4-10.2); Creatinine 1 1.16 mg/dL (0.52-1.04); NT PRO BNP 58.1 pg/mL (0-450); Potassium 4.6 mmol/L (3.5-5.1); Total Protein 6.5 g/dL (6.3-8.2)
[2018-12-28 00:06] VITALS: BP 102/60; PULSE 87
== END 2018-12-28 00:12 | disposition home or self-care (01) ==
LOC: ED 21:47
DX: R60.9 Edema, unspecified (principal); Z79.899 Other long term (current) drug therapy; E11.9 Type 2 diabetes mellitus without complications; J44.9 Chronic obstructive pulmonary disease, unspecified
CPT/HCPCS: 36415; 80053; 83880; 85027; 85379; 99283